=== PATIENT | male | born 1965 | race Caucasian/White ===

== ENCOUNTER → 2021-04-30 | Outpatient (CLI) | payer BC ==
[2021-04-30 15:19] LABS: HEMOGLOBIN 16.6 gm/dl (14.0-17.5); RED BLOOD COUNT 5.48 M/UL (4.20-5.50); WHITE BLOOD COUNT 6.5 K/UL (4.5-11.0)
[2021-04-30 15:42] LABS: BUN/CREATININE RATIO 13 (0-10)
[2021-05-01 10:14] LABS: HBSAG SCREEN Negative (Negative); HEP A AB, IGM Negative (Negative); HEP B CORE AB, IGM Negative (Negative); HEP C VIRUS AB <0.1 (0.0-0.9)
[2021-05-07 18:08] LABS: HLA B 27 DISEASE ASSOCIATION Negative (.)
== END ==
LOC: LAB 14:49
PROVIDERS: Internal Medicine Rheumatology
DX: F10.11 Alcohol abuse, in remission (principal); I10 Essential (primary) hypertension; M25.561 Pain in right knee; M54.2 Cervicalgia
CPT/HCPCS: 36415; 80053; 80074; 81374; 82550; 84443; 84550; 85025; 85652; 86140; 86200; 86430; 86431